=== PATIENT | female | born 1985 ===

== ENCOUNTER 2019-01-15 12:25 | Outpatient (CLI) | payer OTHER ==
[~2019-01-15] VITALS: Ht 172.7 cm; Wt 67.1 kg
== END 2019-01-15 12:45 | disposition home or self-care (01) ==
LOC: OFIC 805 12:25
DX: J30.89 Other allergic rhinitis (principal); R09.81 Nasal congestion; J34.3 Hypertrophy of nasal turbinates

== ENCOUNTER 2019-02-12 12:33 | Outpatient (CLI) | payer OTHER ==
[~2019-02-12] VITALS: Ht 152.4 cm; Wt 67.1 kg
== END 2019-02-12 12:45 | disposition home or self-care (01) ==
LOC: OFIC 805 12:33
DX: J34.3 Hypertrophy of nasal turbinates (principal); J30.89 Other allergic rhinitis; R09.81 Nasal congestion